=== PATIENT | female | born 1930 | race Hispanic/Latino ===

== ENCOUNTER 2020-01-24 10:48 | Day surgery (SDC) | payer MEDICARE ==
[~2020-01-24] VITALS: Ht 149.9 cm; Wt 77.1 kg
[~2020-01-24 10:48] MED LIST: DONE5TAB33 PO; DONE5TAB5 PO; SODIUM CHLORIDE 0.9% 1000ML 0 ML IV ONE
[2020-01-24 11:30] VITALS: BP 135/39
[2020-01-24] MEDS ORDERED: PROPOFOL 10 MG/ML 20ML VIAL IV ONE ×2 (11:30)
[2020-01-24] MEDS ORDERED: GLYCOPYRROLATE 1 MG/5 ML SYRINGE ONE (11:30)
[2020-01-24] MEDS ORDERED: LEVOFLOXACIN 500 MG/D5W 100 ML 100 ML ONE (12:08)
[2020-01-24] MEDS ORDERED: LEVOFLOXACIN 500 MG/D5W 100 ML 100 ML IV SCH (12:15)
[2020-01-24 12:35] VITALS: BP 111/76
[2020-01-24 12:40] VITALS: BP 128/71
[2020-01-24 12:45] VITALS: BP 124/87
[2020-01-24 12:50] VITALS: BP 149/82
[2020-01-24 12:55] VITALS: BP 134/80
== END 2020-01-24 13:00 | disposition home or self-care (01) ==
LOC: DAH 10:48
PROVIDERS: ATTEND Internal Medicine Gastroenterology
DX: K86.2 Cyst of pancreas (principal); Z20.828 Contact with and (suspected) exposure to other viral communicable diseases
CPT/HCPCS: 36415; 43238; 82150; 82378; A4215; A4221; A4222; A4223; A4606; A4663; C9803; J1956; J2704 ×2; J3490; U0003; 43232; J7030